=== PATIENT | male | born 1955 | race African-American/Black ===

== ENCOUNTER 2018-04-07 12:20 | Inpatient (IN) ==
[~2018-04-07 12:20] MED LIST: Glycopyrrolate Inj 1 MG/5 ML Syringe IV.PUSH ONE; Lidocaine PF 1% Inj 5 ML Syringe INFILTRATN ONE; Metoprolol Inj 5 MG/5 ML Vial IV.PUSH ONE; Normosol-R pH 7.4 Inj 2,000 ML IV.CONT ONE; hydrALAZINE HCl Inj 20 MG/ML Vial IV.PUSH ONE
--- NOTE | 2018-04-07 12:56 | P.HPUP ---
The Pre-Admit History and Physical Examination regarding the above named patient was reviewed (including, but not limited to, vital signs, heart, lungs, co-morbid conditions), and upon re-examination it is noted that: the patient's condition has not significantly changed since the last examination.
[2018-04-07] MEDS ORDERED: Chlorhexidine Gluconate 2% 1 Pack (2 Cloths) TOPICAL SCH (13:45)
[2018-04-07] MEDS ORDERED: Metoprolol Tartrate 25 MG Tablet PO SCH (13:45)
[2018-04-07] MEDS ORDERED: Sodium Chlor 0.9% Inj 500 ML IV.SIG SCH (14:00)
[2018-04-07] MEDS ORDERED: Bupivacaine PF 0.5% Inj 30 ML Vial ONE ×6 (14:08→14:59)
[2018-04-07] MEDS ORDERED: Sugammadex Inj 200 MG/2 ML Vial IV.PUSH ONE (14:18)
[2018-04-07] MEDS ORDERED: Potassium Chlor 20 mEq Premix 20 MEQ/100 ML PIGGYBACK IV.SIG PRN (16:17)
[2018-04-07] MEDS ORDERED: Ketorolac Inj 30 MG/ML (IVP) Vial IV.PUSH PRN (16:17)
[2018-04-07] MEDS ORDERED: Potassium Chlor 40 mEq Premix 40 MEQ/100 ML PIGGYBACK IV.SIG PRN (16:17)
[2018-04-07] MEDS ORDERED: Bupivacaine PF 0.5% Inj 30 ML Vial NERV BLOCK PRN (16:17)
[2018-04-07] MEDS ORDERED: Acetaminophen 325 MG Tablet PO PRN (16:17)
[2018-04-07] MEDS ORDERED: Naloxone Inj 0.4 MG/ML Vial IV.PUSH PRN (16:24)
[2018-04-07] MEDS ORDERED: *Meperidine Inj 25 MG/ML Vial PERIprocedural Use ONLY ONE (16:30)
[2018-04-07] MEDS ORDERED: fentaNYL Citrate Inj 100 MCG/2 ML Ampul ONE (16:37)
[2018-04-07] MEDS ORDERED: Morphine Inj 4 MG/ML Vial ONE (16:37)
[2018-04-07] MEDS ORDERED: Morphine Inj 30 MG/30 ML PCA.VIAL PCA ONE (16:42)
[2018-04-07] MEDS ORDERED: *morphine SULFATE 4 MG/ML PERIprocedure ONLY ONE (16:48)
[2018-04-07] MEDS: KCL 20 mEq/D5W/NaCl 0.9% Inj 1,000 ML IV.CONT SCH (17:00)
[2018-04-07] MEDS: Morphine Inj 30 MG/30 ML PCA.VIAL PCA PRN (18:51)
[2018-04-08] MEDS: KCL 20 mEq/D5W/NaCl 0.9% Inj 1,000 ML IV.CONT SCH ×3 (04:16→09:51)
[2018-04-08] MEDS: Morphine Inj 30 MG/30 ML PCA.VIAL PCA PRN ×3 (04:41→16:41)
[2018-04-08 05:21] LABS: Baso % (Auto) 0.1 % (0.0-2.0); Hematocrit 36.8 % (39.0-51.0); Hemoglobin 11.9 gm/dL (13.0-17.0); Lymph # (Auto) 0.7 th/mm3 (1.0-4.8); Lymph % (Auto) 4.8 % (9.0-44.0); Mean Corpuscular HGB Conc 32.4 % (32.0-36.0); Mean Corpuscular Hemoglobin 22.1 pg (27.0-34.0); Mean Corpuscular Volume 68.1 fL (80.0-100.0); Mono # (Auto) 1.3 th/mm3 (0.0-0.9); Mono % (Auto) 8.4 % (0.0-8.0); Neut % (Auto) 86.7 % (16.0-70.0); Platelet Count 210 th/mm3 (150-450)
[2018-04-08 05:35] LABS: Anion Gap 9 meq/L (5-15); Blood Urea Nitrogen 6 mg/dL (7-18); Carbon Dioxide 22.3 meq/L (21.0-32.0); Chloride 106 meq/L (98-107); Glomerular Filtration Rate Greater Than 89 mL/min (>89); Glucose,Random 189 mg/dL (74-106); Potassium 4.6 meq/L (3.5-5.1); Sodium 137 meq/L (136-145)
[2018-04-08] MEDS: Dextrose 5%/NaCl 0.9% Inj 1,000 ML IV.SIG SCH ×2 (07:11→07:38)
--- NOTE | 2018-04-08 08:01 | P.PNCS ---
Subjective Interval history: C/R Surg POD #1 afebrile, VSS UO good Objective Result Diagrams: 04/08/18 04:01 04/08/18 04:01 Objective Remarks: PE alert Abd - soft, wound dry, min tympany Assessment and Plan - Plan Imp: stable post-op OOB decr IVF tx to floor
[2018-04-08] MEDS: Pantoprazole Inj 40 MG Vial IV.PUSH SCH (09:10)
--- NOTE | 2018-04-08 23:31 | MP ---
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 PROCEDURE PERFORMED: Exploratory laparotomy with right hemicolectomy. POSTOPERATIVE DIAGNOSIS: Carcinoma of the hepatic flexure. SURGEON: Alex Pham MD ADDRESS CHANGE CLERK: Ray Velez MD DESCRIPTION OF PROCEDURE: The patient was placed in the supine position. After adequate general anesthesia, his legs were placed in universal stirrups and supported appropriately. Abdomen and perineum were then prepped with Betadine solution and draped in the usual sterile fashion. With Dr. Velez's assistance, the abdomen was opened through a supraumbilical transverse incision, dividing the rectus muscles with electrocautery. Exploration revealed Linnea ink in the omentum and throughout most of the mesentery of the colon, especially on the right side of the abdomen. There did appear to be more concentration at the hepatic flexure and a tumor was palpable in this region. There did appear to be some serosal puckering. The remainder of the colon was palpated carefully and except for some redundancy in the sigmoid, it was pretty unremarkable. The small bowel was run from ligament of Treitz down to the ileocecal valve and felt to be normal. Liver had no masses. The gallbladder was unremarkable. The stomach and duodenum were normal. The great vessels were of normal caliber, mildly calcified. First, the right colon was mobilized medially by dividing along the white line of Toldt. The right ureter was identified and carefully preserved. Dissection proceeded of the right gutter, taking down attachments to the hepatic flexure into the lesser sac and taking some of the gastrocolic omentum with the specimen. The bowel was then divided in the right side of the transverse colon using the ALFONSO stapler and the terminal ileum using Cherelle clamps. The intervening mesentery taken between Karla's, obtaining hemostasis with Vicryl ties. Bowel continuity was then restored by firing the ALFONSO stapler across the antimesenteric ends of the bowel, closing the enterotomy with a TA 60 stapler. Mesenteric defect closed with a running Vicryl suture and a 3-0 Vicryl crotch suture was placed as well. Bowel was placed back into the abdomen. Abdomen irrigated copiously and hemostasis achieved. Transverse incision was closed anatomically in 2 layers using #1 PDS sutures to reapproximate the respective fascial layers. On-Q catheters were placed into the rectus sheaths on the right side and brought out through subcutaneous tunnel above the transverse incision. The subcutaneous tissues were irrigated copiously and the skin closed with a running subcuticular Vicryl suture. Wound area washed with normal saline and dried, sterile dressing of Telfa and gauze applied. The patient tolerated the procedure quite well and was brought to the recovery room in stable condition. Sponge and needle counts were correct at the end of the procedure. Alex Pham MD [facility]/ , 11:14 PM , 11:30 PM
[2018-04-09] MEDS: KCL 20 mEq/D5W/NaCl 0.9% Inj 1,000 ML IV.CONT SCH ×2 (00:26→12:19)
[2018-04-09 07:14] LABS: Baso % (Auto) 0.3 % (0.0-2.0); Hematocrit 36.6 % (39.0-51.0); Hemoglobin 11.5 gm/dL (13.0-17.0); Lymph # (Auto) 2.3 th/mm3 (1.0-4.8); Lymph % (Auto) 13.9 % (9.0-44.0); Mean Corpuscular HGB Conc 31.3 % (32.0-36.0); Mean Corpuscular Hemoglobin 21.4 pg (27.0-34.0); Mean Corpuscular Volume 68.3 fL (80.0-100.0); Mean Platelet Volume 8.8 fL (7.0-11.0); Mono # (Auto) 1.9 th/mm3 (0.0-0.9); Mono % (Auto) 11.1 % (0.0-8.0); Neut # (Auto) 12.5 th/mm3 (1.8-7.7); Neut % (Auto) 74.7 % (16.0-70.0); Platelet Count 180 th/mm3 (150-450); Red Blood Count 5.36 mil/mm3 (4.50-5.90); Red Cell Distribution Width 16.7 % (11.6-17.2); White Blood Count 16.7 th/mm3 (4.0-11.0)
[2018-04-09 07:43] LABS: Calcium 8.4 mg/dL (8.5-10.1); Potassium 4.4 meq/L (3.5-5.1)
[2018-04-09] MEDS: Pantoprazole Inj 40 MG Vial IV.PUSH SCH (08:57)
--- NOTE | 2018-04-09 16:59 | P.PNCS ---
Subjective Interval history: C/R Surg POD # 2 afebrile, VSS UO good OOB Objective Result Diagrams: 04/09/18 04:56 04/09/18 04:56 Objective Remarks: PE alert Abd - soft, wound dry, min tympany Assessment and Plan - Plan Imp: OOB decr IVF dc morales adv diet
[2018-04-10 00:54] VITALS: TEMP 98.1
[2018-04-10 04:16] VITALS: O2SAT 97
[2018-04-10] MEDS: KCL 20 mEq/D5W/NaCl 0.9% Inj 1,000 ML IV.CONT SCH (05:33)
[2018-04-10 08:44] VITALS: BP 178/81; PULSE 89; RESP 20
[2018-04-10] MEDS: Pantoprazole Inj 40 MG Vial IV.PUSH SCH (11:52)
--- NOTE | 2018-05-02 05:49 | MD ---
cc: Alex Pham MD DATE OF DISCHARGE: 04/10/2018 ADMITTING DIAGNOSIS: Carcinoma of the hepatic flexure. PROCEDURE: On 04/07/2018, exploratory laparotomy with right hemicolectomy. DISCHARGE DIAGNOSES: 1. Carcinoma of the right colon, T2N0M0. 2. History of adenomatous polyps. HISTORY OF PRESENT ILLNESS: Mr. Louise is a 62-year-old male who has been in relatively good health, having polyps taken out years ago. Recently had a followup colonoscopy and a mass was identified. Once thought, it was the splenic flexure. The mass was biopsied showing invasive adenocarcinoma. Preoperative CAT scanning, however, shows a mass, more likely to be in the hepatic flexure. I have no other evidence of metastatic disease is seen in the CT scans. He does move his bowels without laxatives or enemas. Denies any bleeding, nausea, vomiting, or prolapse of his rectum. No diarrhea. No melena. Appetite has been good and his weight has been stable, about 255 pounds. The patient is admitted at this time for definitive surgical resection. Please see admitting history and physical for more complete past medical and surgical history. PERTINENT PHYSICAL: Very pleasant heavyset male in no acute distress. Abdomen was rounded and full, not really distended. Normal bowel sounds. No rebound, guarding, or masses. RECTAL: Anal inspection reveals benign canal. Digital exam revealed good tone. No masses or tenderness or any blood on the finger. HOSPITAL COURSE: After admission, the patient was taken to the operating room on 04/07/2018, at which point, he underwent an exploratory laparotomy and right hemicolectomy. He was found to have a palpable tumor at the hepatic flexure. There was some serosal puckering but the tumor was not adherent to any surrounding structures. The liver had no masses. The patient tolerated the procedure quite well. Initially, he was stabilized in the progressive care unit. His GI tract function returned fairly promptly and his diet was advanced accordingly. He was able to be weaned off his IV fluids and was having bowel movements comfortable with oral pain medication and considered stable for discharge home on 04/10/2018. PATHOLOGY: Final pathology report revealed a well-differentiated adenocarcinoma invading through the muscularis propria into the pericolonic tissue. No positive nodes was seen in 18 lymph nodes. Final stage was T3N0M0. DISCHARGE INSTRUCTIONS: The patient was discharged eating a regular diet, is encouraged to ambulate daily, avoiding any heavy lifting or straining. All preop medications were to be resumed. The patient will be seen in the office in 1 week's time for routine followup. Any problems prior to the scheduled office visit, he was encouraged to call for more urgent attention. Alex Pham MD [facility]/sv , 09:43 PM , 09:53 PM
== END 2018-04-10 12:14 | disposition home or self-care (01) ==
LOC: HSDI 12:20 → HCPC 20:11 → N07 04-08 18:23
PROVIDERS: ADMIT Colon & Rectal Surgery; ATTEND Colon & Rectal Surgery
DX: I10 Essential (primary) hypertension; E66.9 Obesity, unspecified; Z87.891 Personal history of nicotine dependence; C18.3 Malignant neoplasm of hepatic flexure; Z68.41 Body mass index [BMI] 40.0-44.9, adult

== ENCOUNTER 2018-04-14 02:54 | Observation (INO) ==
[2018-04-14] MEDS ORDERED: Morphine Inj 4 MG/ML Vial IV.PUSH ONE ×2 (03:21→07:31)
[2018-04-14] MEDS ORDERED: Sod Chloride 0.9% Inj 1,000 ML IV.CONT SCH (03:30)
--- NOTE | 2018-04-14 03:34 | ED ---
HPI General Chief Complaint: Abdominal Pain Stated Complaint: Abd Pain/EVAC Time Seen by Provider: 04/14/18 05:13 History of Present Illness HPI narrative: 63-year-old male presents to the emergency department by EMS transport from home for complaint of abdominal pain and abdominal distention associated with bilious emesis. Patient underwent elective surgery with exploratory laparotomy by colorectal surgeon Dr. Pham 04/07/18 with resection and hemicolectomy for hepatic flexure carcinoma. Patient was hospitalized for 3 days and had small amount of bowel movement and flatus was discharged home on Thursday subsequently has had 2 very small bowel movements scant amount of flatus increasing abdominal distention and constipation. Patient contacted his colorectal surgeon Dr. Pham who encouraged him to use suppository to assist with bowel movement and to take Reglan for complaint of nausea and vomiting. Patient complains of feeling hot and cold but has not had a fever at home reportedly. Patient's had decreased oral intake. Patient does have history of hypertension but has not been able to keep his blood pressure medication on board due to nausea and vomiting. No report of decreased urine output. No flank pain. No chest pain or shortness of breath. Patient has felt weak and continues to have abdominal pain and has not been taking his pain medication due to Related Data Home Medications Medication Instructions Recorded Confirmed clonidine HCl 0.2 mg PO BID 03/31/18 04/14/18 Allergies Allergy/AdvReac Type Severity Reaction Status Date / Time No Known Allergies Allergy Verified 04/07/18 13:03 [facility] Medical History Medical History Abnormal colonoscopy (Acute) Colon cancer (Acute) HTN (hypertension) (Acute) Surgical History Surgical History No history of previous surgery (Acute) Social History Social History Substance History: No History of Abuse Second Hand Smoke Exposure: No Smoking Status: Never smoker How Often Do You Have a Drink Containing Alcohol: Never Recent Travel in [facility] within the Last 8 Weeks: No Recent Out of Country Travel within the Last 8 Weeks: No Immunization History Tetanus Immunization: >5 Years Hx Influenza Vaccine This Season: No Exam Narrative Exam Narrative: GENERAL: Well-nourished, well-developed patient. Appears mildly ill with no respiratory distress on monitoring coordinator heart rate sinus tachycardia 115 SKIN: Focused skin assessment warm/dry. HEAD: Normocephalic. EYES: No scleral icterus. No injection or drainage. NECK: Supple, trachea midline. No JVD or lymphadenopathy. CARDIOVASCULAR: Regular rate and rhythm without murmurs, gallops, or rubs. RESPIRATORY: Breath sounds equal bilaterally. No accessory muscle use. GASTROINTESTINAL: Abdomen soft, diffusely mildly tender, distended, surgical scar wound edges are well approximated no palpable soft tissue swelling fluctuance induration or erythema surgical site is nontender. MUSCULOSKELETAL: No cyanosis, or edema. BACK: Nontender without obvious deformity. No CVA tenderness. Course Consultations Consultation #1: call placed to Dr Pham Initial Documented Vital Signs Temperature 98.3 F 04/14/18 03:18 Pulse Rate 118 H 04/14/18 03:18 Respiratory Rate 18 04/14/18 03:18 Blood Pressure 203/109 H 04/14/18 03:18 Pulse Oximetry 96 04/14/18 03:18 Last Documented Vital Signs Temperature 98.5 F 04/14/18 03:22 Pulse Rate 114 H 04/14/18 03:22 Respiratory Rate 16 04/14/18 03:22 Blood Pressure 198/93 H 04/14/18 03:22 Pulse Oximetry 98 04/14/18 03:22 Medical Decision Making MDM Narrative Medical decision making narrative: 63-year-old male with decreased flatus and bowel movement with increasing nausea vomiting abdominal girth status post partial colectomy due to hepatic flexure carcinoma status post surgery 04/07/18 presents ill-appearing with generalized weakness and tachycardia; no chest pain no pleuritic chest pain no shortness of breath. Patient's been afebrile. IV access obtained specimens collected and sent for resulting imaging studies ordered At 5:[address] abdomen pelvis consistent with small bowel obstruction; call placed to patient's colorectal surgeon Dr. Pham NG tube placement ordered; patient and family at bedside aware of plan for observation admission for postoperative ileus versus small bowel obstruction; patient is aware he will be on Dr. Pham service. Patient did not take pain medication ordered earlier and request pain medication at this time. Differential Diagnosis Differential Diagnosis: Bowel obstruction, postoperative hematoma, pneumonia, sepsis, PE, UTI Medical Records Medical records reviewed: Yes I reviewed the patient's medical records. Lab Data Result diagrams: 04/14/18 03:46 04/14/18 03:46 Lab Results 04/14/18 04/14/18 04/14/18 Range/Units 03:46 03:46 03:46 WBC (4.0-11.0) th/mm3 RBC (4.50-5.90) mil/mm3 Hgb (13.0-17.0) gm/dL Hct (39.0-51.0) % MCV (80.0-100.0) fL MCH (27.0-34.0) pg MCHC (32.0-36.0) % RDW (11.6-17.2) % Plt Count (150-450) th/mm3 MPV (7.0-11.0) fL Neut % (Auto) (16.0-70.0) % Lymph % (Auto) (9.0-44.0) % Gaines % (Auto) (0.0-8.0) % Eos % (Auto) (0.0-4.0) % Baso % (Auto) (0.0-2.0) % Neut # (Auto) (1.8-7.7) th/mm3 Lymph # (Auto) (1.0-4.8) th/mm3 Gaines # (Auto) (0.0-0.9) th/mm3 Eos # (Auto) (0.0-0.4) th/mm3 Baso # (Auto) (0.0-0.2) th/mm3 WBC Differential Differential Comment PT 10.8 (9.8-11.6) sec INR 1.1 Ratio APTT 29.9 (24.3-30.1) sec Sodium (136-145) meq/L Potassium (3.5-5.1) meq/L Chloride (98-107) meq/L Carbon Dioxide (21.0-32.0) meq/L Anion Gap (5-15) meq/L BUN (7-18) mg/dL Creatinine (0.60-1.30) mg/dL Estimated GFR (>89) mL/min Random Glucose (74-106) mg/dL Lactic Acid 1.5 (0.4-2.0) mmol/L Calcium (8.5-10.1) mg/dL Total Bilirubin (0.2-1.0) mg/dL AST (15-37) U/L ALT (12-78) U/L Alkaline Phosphatase (45-117) U/L Total Protein (6.4-8.2) g/dL Albumin (3.4-5.0) g/dL Lipase (73-393) U/L Blood Type O Positive Blood Type Recheck Required Antibody Screen Negative 04/14/18 04/14/18 Range/Units 03:46 03:46 WBC 11.9 H (4.0-11.0) th/mm3 RBC 5.85 (4.50-5.90) mil/mm3 Hgb 12.7 L (13.0-17.0) gm/dL Hct 39.6 (39.0-51.0) % MCV 67.7 L (80.0-100.0) fL MCH 21.7 L (27.0-34.0) pg MCHC 32.0 (32.0-36.0) % RDW 15.7 (11.6-17.2) % Plt Count 303 D (150-450) th/mm3 MPV 8.1 (7.0-11.0) fL Neut % (Auto) 63.8 (16.0-70.0) % Lymph % (Auto) 19.3 (9.0-44.0) % Gaines % (Auto) 16.4 H (0.0-8.0) % Eos % (Auto) 0.3 (0.0-4.0) % Baso % (Auto) 0.2 (0.0-2.0) % Neut # (Auto) 7.6 (1.8-7.7) th/mm3 Lymph # (Auto) 2.3 (1.0-4.8) th/mm3 Gaines # (Auto) 2.0 H (0.0-0.9) th/mm3 Eos # (Auto) 0.0 (0.0-0.4) th/mm3 Baso # (Auto) 0.0 (0.0-0.2) th/mm3 WBC Differential . Differential Comment Auto diff final PT (9.8-11.6) sec INR Ratio APTT (24.3-30.1) sec Sodium 132 L (136-145) meq/L Potassium 4.2 (3.5-5.1) meq/L Chloride 93 L (98-107) meq/L Carbon Dioxide 25.2 (21.0-32.0) meq/L Anion Gap 14 (5-15) meq/L BUN 38 H (7-18) mg/dL Creatinine 1.39 H (0.60-1.30) mg/dL Estimated GFR 62 L (>89) mL/min Random Glucose 147 H (74-106) mg/dL Lactic Acid (0.4-2.0) mmol/L Calcium 9.7 (8.5-10.1) mg/dL Total Bilirubin 0.5 (0.2-1.0) mg/dL AST 35 (15-37) U/L ALT 39 (12-78) U/L Alkaline Phosphatase 80 (45-117) U/L Total Protein 8.2 (6.4-8.2) g/dL Albumin 3.5 (3.4-5.0) g/dL Lipase 110 (73-393) U/L Blood Type Blood Type Recheck Antibody Screen Imaging Data Radiologist's impression: Abdomen/Pelvis CT 04/14/18 03:21 CONCLUSION: 1. CT findings concerning for small bowel obstruction. Short segment transition just proximal to what appears to be enterocolonic anastomosis in the right abdomen with a colonic transition at the splenic flexure. Descending and sigmoid portions of the colon are completely decompressed. 2. Diverticular disease of the sigmoid colon without diverticulitis. 3. Bibasilar atelectatic changes. Chest X-Ray 04/14/18 03:21 CONCLUSION: Bibasilar atelectatic changes Discharge Plan Discharge Disposition Patient Disposition: 30 Still Patient Discharge Condition Condition: Stable Discharge Details Diagnosis: Small bowel obstruction Physicians Team ED Provider: Lin Freeman Primary Care Provider: Juan Diego Pérez Attending Provider: Alex Pham Status ED Status: Admitted Observation Patient
[2018-04-14 04:02] LABS: Baso % (Auto) 0.2 % (0.0-2.0); Eos % (Auto) 0.3 % (0.0-4.0); Hematocrit 39.6 % (39.0-51.0); Hemoglobin 12.7 gm/dL (13.0-17.0); Lymph # (Auto) 2.3 th/mm3 (1.0-4.8); Lymph % (Auto) 19.3 % (9.0-44.0); Mean Corpuscular Hemoglobin 21.7 pg (27.0-34.0); Mean Corpuscular Volume 67.7 fL (80.0-100.0); Mean Platelet Volume 8.1 fL (7.0-11.0); Mono % (Auto) 16.4 % (0.0-8.0); Neut # (Auto) 7.6 th/mm3 (1.8-7.7); Neut % (Auto) 63.8 % (16.0-70.0); Platelet Count 303 th/mm3 (150-450); Red Blood Count 5.85 mil/mm3 (4.50-5.90); Red Cell Distribution Width 15.7 % (11.6-17.2); White Blood Count 11.9 th/mm3 (4.0-11.0)
--- NOTE | 2018-04-14 04:17 | XR ---
EXAM DATE: 04/14/2018 4:11 AM EDT AGE/SEX: 63 years / Male INDICATIONS: Chest pain, nausea, vomiting, abdominal pain and distention. CLINICAL DATA: This is the patient's initial encounter. Patient reports that signs and symptoms have been present for 4 - 6 days and indicates a pain score of 3/10. MEDICAL/SURGICAL HISTORY: None. None. [place] [facility] [place]. . FINDINGS: A single AP view of the chest demonstrates the lungs to be symmetrically aerated with developing biba silar atelectatic changes, particularly medially. Heart size is upper limits of normal. Some degenera tive spurring of the dorsal spine and both AC joints. Osseous structures are otherwise intact. CONCLUSION: Bibasilar atelectatic changes Electronically signed by: Danny Faria MD 04/14/2018 4:16 AM EDT
[2018-04-14 04:18] LABS: Alkaline Phosphatase 80 U/L (45-117); Total Protein 8.2 g/dL (6.4-8.2)
[2018-04-14 04:22] LABS: Activated Partial Thrombo Time 29.9 sec (24.3-30.1); Alanine Aminotransferase 39 U/L (12-78); Albumin 3.5 g/dL (3.4-5.0); Anion Gap 14 meq/L (5-15); Aspartate Aminotransferase 35 U/L (15-37); Blood Urea Nitrogen 38 mg/dL (7-18); Calcium 9.7 mg/dL (8.5-10.1); Carbon Dioxide 25.2 meq/L (21.0-32.0); Chloride 93 meq/L (98-107); Glomerular Filtration Rate 62 mL/min (>89); Glucose,Random 147 mg/dL (74-106); INR 1.1 Ratio; Lipase 110 U/L (73-393); Prothrombin Time 10.8 sec (9.8-11.6); Sodium 132 meq/L (136-145)
[2018-04-14 04:23] LABS: Potassium 4.2 meq/L (3.5-5.1)
--- NOTE | 2018-04-14 05:54 | CT ---
EXAM DATE: 04/14/2018 5:26 AM EDT AGE/SEX: 63 years / Male INDICATIONS: Distention and vomiting one week post operative colectomy. CLINICAL DATA: This is the patient's initial encounter. Patient reports that signs and symptoms have been present for 4 - 6 days and indicates a pain score of 8/10. MEDICAL/SURGICAL HISTORY: Hypertension. Carcinoma; colon. . Colectomy. ORAL CONTRAST: No oral contrast ingested. RADIATION DOSE: 7.74 CTDI (mGy) COMPARISON: [facility], CT ABDOMEN AND PELVIS W AND W/O CONTRAST, 02/17/2018. . TECHNIQUE: Multiple contiguous axial images were obtained through the abdomen and pelvis following b olus infusion of 75 ml Omnipaque 350 (iohexol) nonionic water-soluble contrast as a single exam dos e. No oral contrast ingested. Using automated exposure control and adjustment of the mA and/or kV ac cording to patient size, radiation dose was kept as low as reasonably achievable to obtain optimal di agnostic quality images. DICOM format image data is available electronically for review and comparis on. FINDINGS: Lower Lungs: Bibasilar atelectatic changes. Liver: The liver has a homogeneous density without space-occupying lesion. There is no dilation of th e biliary tree. Spleen: Homogeneous density without enlargement. Pancreas: Unremarkable without mass or calcification. Kidneys: Normal in size and shape. No evidence of mass or hydronephrosis. Adrenal Glands: Unremarkable. Aorta: The aorta and proximal iliac vessels are grossly unremarkable without aneurysmal dilation. Bowel/Mesentery: There is diffuse distention of the small bowel and gastric lumen. Fluid is actually seen in the distal esophagus as well. There are 2 relative transition points. The first in the right lower abdominal quadrant is just proximal to what appears to be the enterocolonic anastomosis. Secon d transition is within the colon itself in the region of the splenic flexure. A few diverticula in th e sigmoid without diverticulitis. Abdominal Wall: Intact. Retroperitoneum: No evidence of adenopathy in the retrocrural, para-aortic, or deep pelvic regions. Bladder: Contours are smooth. Reproductive Organs: No abnormal masses or calcifications seen. Inguinal: The inguinal region is unremarkable without evidence of adenopathy. Bony Structures: Unremarkable. Post Contrast: No abnormal areas of enhancement seen. CONCLUSION: 1. CT findings concerning for small bowel obstruction. Short segment transition just proximal to wha t appears to be enterocolonic anastomosis in the right abdomen with a colonic transition at the splen ic flexure. Descending and sigmoid portions of the colon are completely decompressed. 2. Diverticular disease of the sigmoid colon without diverticulitis. 3. Bibasilar atelectatic changes. Electronically signed by: Danny Faria MD 04/14/2018 5:53 AM EDT
[2018-04-14] MEDS ORDERED: Lidocaine 2% Jelly 5 ML Syringe TOPICAL ONE (07:31)
[2018-04-14] MEDS: Sod Chloride 0.9% Inj 1,000 ML IV.CONT SCH ×2 (09:39→17:12)
[2018-04-14] MEDS: Pantoprazole Inj 40 MG Vial IV.PUSH SCH (09:56)
[2018-04-14 12:45] LABS: Bacteria,Urine Moderate /hpf; Bilirubin,Urine Negative (Negative); Clarity,Urine Hazy (Clear); Color,Urine Yellow (Yellw/Straw); Glucose,Urine (UA) 50 mg/dL (Negative); Hyaline Casts,Urine 31 /lpf (0-3); Leukocyte Esterase,Urine Negative (Negative); Mucus,Urine Few /lpf (Occasional); Nitrite,Urine Negative (Negative); Squamous Epithelial Cell,Urine <1 /hpf (0-5)
--- NOTE | 2018-04-14 12:57 | MH ---
cc: Alex Pham MD DATE OF ADMISSION: 04/14/2018 ADMITTING DIAGNOSIS: Nausea, vomiting postop ascending colectomy. HISTORY OF PRESENT ILLNESS: Mr. Louise is 63-year-old male recently operated on for a cancer of the hepatic flexure. He did well postoperatively and was home, eating well. The patient developed some gaseous distention and some nausea, vomiting. He was given some Phenergan and continued to have decreased oral intake. He presented to the emergency room last evening with continued emesis and abdominal cramps. He has had some flatus, but very little bowel movement over the last several days. Denied any fever. No rectal bleeding. The patient has been urinating fairly well. PAST MEDICAL HISTORY: Please see his recent admission for a more complete past medical and surgical history. PERTINENT PHYSICAL EXAMINATION: GENERAL: A very pleasant black male in no acute distress. HEENT: Remarkable for dry, but pink membranes. Nonicteric sclerae. NECK: Supple with no gross adenopathy. CHEST: Diminished in the bases, clear anteriorly. HEART: Regular rhythm. ABDOMEN: Doughy and soft, a little full. Minimal tympany. The wound is healing well. Very little tenderness, rebound, guarding or any masses. NG tube was in place. EXTREMITIES: Show no cyanosis or clubbing and minimal trace pedal edema. LABORATORY STUDIES: White count was 11.9, hemoglobin 12.7. BUN was 38, creatinine of 1.39. Sodium of 132. Amylase and lipase were normal. Liver function tests were unremarkable. IMAGING STUDIES: CT scan was reviewed, showing a generalized ileus with distended loops of bowel as well as a gastric air fluid level and air in the colon as well. No sign of intra-abdominal abscess or fluid collection was noted. IMPRESSION: A 63-year-old male status post ascending colectomy for cancer of the right colon. Presents with several days of decreased oral intake and nausea, vomiting. CAT scan shows findings consistent with a postop ileus. He is dehydrated with an elevated BUN and creatinine, and will have vigorous fluid replacement. Watch his urine output. Control his hypertension. Try to get him ambulating, and continue the nasogastric tube with decompression of the stomach and small bowel for the next day or so, hopefully getting the ileus to resolve spontaneously. MD JUAN J Roach/martinez/ll , 12:00 PM , 12:09 PM
[2018-04-14] MEDS ORDERED: Morphine Inj 30 MG/30 ML PCA.VIAL PCA PRN (18:21)
[2018-04-14] MEDS ORDERED: Naloxone Inj 0.4 MG/ML Vial IV.PUSH PRN (18:21)
[2018-04-15] MEDS: Sod Chloride 0.9% Inj 1,000 ML IV.CONT SCH ×3 (05:48→17:27)
[2018-04-15] MEDS: Pantoprazole Inj 40 MG Vial IV.PUSH SCH (09:48)
[2018-04-15 13:24] LABS: Baso % (Auto) 0.3 % (0.0-2.0); Eos % (Auto) 0.2 % (0.0-4.0); Hematocrit 37.6 % (39.0-51.0); Lymph # (Auto) 2.1 th/mm3 (1.0-4.8); Lymph % (Auto) 15.1 % (9.0-44.0); Mean Corpuscular Hemoglobin 21.8 pg (27.0-34.0); Mean Corpuscular Volume 68.3 fL (80.0-100.0); Mono # (Auto) 1.8 th/mm3 (0.0-0.9); Neut # (Auto) 9.7 th/mm3 (1.8-7.7); Neut % (Auto) 71.4 % (16.0-70.0); Platelet Count 333 th/mm3 (150-450); Red Blood Count 5.51 mil/mm3 (4.50-5.90); Red Cell Distribution Width 15.9 % (11.6-17.2); White Blood Count 13.7 th/mm3 (4.0-11.0)
[2018-04-15 13:51] LABS: Anion Gap 9 meq/L (5-15); Blood Urea Nitrogen 18 mg/dL (7-18); Calcium 8.7 mg/dL (8.5-10.1); Chloride 103 meq/L (98-107); Glomerular Filtration Rate Greater Than 89 mL/min (>89); Glucose,Random 166 mg/dL (74-106); Potassium 3.5 meq/L (3.5-5.1); Sodium 138 meq/L (136-145)
[2018-04-15 13:59] LABS: Lymphocytes 28 % (9-44); Monocytes 4 % (0-8); Myelocytes 2 % (0-0); Toxic Granulation 1+
[2018-04-15 14:00] LABS: Platelet Estimate Normal (Normal); Platelet Morphology Normal (Normal); Target Cells 1+
[2018-04-15] MEDS: Heparin - SQ 10,000 UNITS/ML Vial SQ SCH (20:42)
--- NOTE | 2018-04-15 23:06 | P.PNCS ---
Subjective Interval history: C/R Surg afebrile, VSS NGT less UO good +BM Objective Result Diagrams: 04/15/18 12:59 04/15/18 12:55 Objective Remarks: PE alert Abd - soft, wound dry, less tympany Assessment and Plan - Plan Discussed Condition With: Imp: better GI function DC NGT start PO decr IVF
[2018-04-16] MEDS: Sod Chloride 0.9% Inj 1,000 ML IV.CONT SCH (09:13)
[2018-04-16] MEDS: Pantoprazole Inj 40 MG Vial IV.PUSH SCH (09:14)
[2018-04-16] MEDS: Heparin - SQ 10,000 UNITS/ML Vial SQ SCH (09:14)
--- NOTE | 2018-05-12 03:38 | ED ---
HPI General Chief Complaint: Abdominal Pain Stated Complaint: Abd Pain/EVAC Time Seen by Provider: 04/14/18 05:13 Source: patient and family Mode of arrival: EMS Limitations: no limitations History of Present Illness HPI narrative: 63-year-old male presents to the emergency department with family by EMS for evaluation of abdominal distention abdominal pain vomiting and constipation. Patient underwent partial bowel resection for colon cancer by colorectal surgeon Dr. Pham 1 week ago. Patient rates pain 7/10 in intensity. No reported fever or chills. Patient voicing no other concerns or complaints. No chest pain no shortness of breath no pleuritic chest pain no lower extremity pain or swelling. No dysuria frequency. No skin rash, redness induration or drainage. MD complaint: abdominal pain Onset (ago): day(s) Pain Consistency: constant Location: diffuse Severity scale (1-10): 7 Quality: cramping Radiation: none Migration to: no migration Relieving factors: nothing Exacerbating factors: nothing Context: recent surgery/procedure Associated symptoms: nausea, vomiting and constipation (no bm) Related Data Home Medications Medication Instructions Recorded Confirmed clonidine HCl 0.2 mg PO BID 03/31/18 04/14/18 Allergies Allergy/AdvReac Type Severity Reaction Status Date / Time No Known Allergies Allergy Verified 04/14/18 13:05 Review of Systems ROS: all other systems reviewed are negative [facility] Medical History Medical History Abnormal colonoscopy (Acute) Colon cancer (Acute) HTN (hypertension) (Acute) Surgical History Surgical History History of bowel resection (Acute) No history of previous surgery (Acute) Social History Social History Substance History: No History of Abuse Second Hand Smoke Exposure: No Smoking Status: Former smoker Tobacco Type: Cigarettes How Often Do You Have a Drink Containing Alcohol: Never Recent Travel in [place] within the Last 8 Weeks: No Recent Out of Country Travel within the Last 8 Weeks: No Immunization History Tetanus Immunization: >5 Years Hx Influenza Vaccine This Season: No Exam Narrative Exam Narrative: GENERAL: Well-nourished, well-developed patient. SKIN: Focused skin assessment warm/dry. HEAD: Normocephalic. EYES: No scleral icterus. No injection or drainage. NECK: Supple, trachea midline. No JVD or lymphadenopathy. CARDIOVASCULAR: Regular rate and rhythm without murmurs, gallops, or rubs. RESPIRATORY: Breath sounds equal bilaterally. No accessory muscle use. GASTROINTESTINAL: Abdomen soft, tender, nondistended. MUSCULOSKELETAL: No cyanosis, or edema. BACK: Nontender without obvious deformity. No CVA tenderness. Course Initial Documented Vital Signs Temperature 98.3 F 04/14/18 03:18 Pulse Rate 118 H 04/14/18 03:18 Respiratory Rate 18 04/14/18 03:18 Blood Pressure 203/109 H 04/14/18 03:18 Pulse Oximetry 96 04/14/18 03:18 Last Documented Vital Signs Temperature 98.1 F 04/16/18 15:45 Pulse Rate 97 H 04/16/18 15:45 Respiratory Rate 20 04/16/18 15:45 Blood Pressure 171/85 H 04/16/18 15:45 Pulse Oximetry 97 04/16/18 15:45 Medical Decision Making MDM Narrative Medical decision making narrative: Patient with abdominal pain 1 week postoperatively placed on electronic device monitor IV access obtained specimens collected and sent for resulting pain medication administered CT abdomen pelvis ordered CT consistent with small bowel obstruction noted some atelectasis White count is elevated at 13,700 urine shows moderate bacteria Patient's case discussed with his surgeon Dr. Pham for admission Medical Screen Exam Complete: Yes Emergency Medical Condition: Yes Differential Diagnosis Differential Diagnosis: Postoperative pain, ileus, bowel obstruction, abscess, diverticulitis, viscus perforation, Medical Records Medical records reviewed: Yes I reviewed the patient's medical records. Lab Data Result diagrams: 04/15/18 12:59 04/15/18 12:55 Lab Results 04/14/18 04/14/18 04/14/18 Range/Units 03:46 03:46 03:46 WBC (4.0-11.0) th/mm3 RBC (4.50-5.90) mil/mm3 Hgb (13.0-17.0) gm/dL Hct (39.0-51.0) % MCV (80.0-100.0) fL MCH (27.0-34.0) pg MCHC (32.0-36.0) % RDW (11.6-17.2) % Plt Count (150-450) th/mm3 MPV (7.0-11.0) fL Prelim Diff (Auto) Neut % (Auto) (16.0-70.0) % Lymph % (Auto) (9.0-44.0) % Bartholomew % (Auto) (0.0-8.0) % Eos % (Auto) (0.0-4.0) % Baso % (Auto) (0.0-2.0) % Neut # (Auto) (1.8-7.7) th/mm3 Lymph # (Auto) (1.0-4.8) th/mm3 Bartholomew # (Auto) (0.0-0.9) th/mm3 Eos # (Auto) (0.0-0.4) th/mm3 Baso # (Auto) (0.0-0.2) th/mm3 WBC Differential Seg Neuts % (Manual) (16-70) % Band Neuts % (Manual) (0-6) % Lymphocytes % (Manual) (9-44) % Monocytes % (Manual) (0-8) % Myelocytes % (Man) (0-0) % Abs Neuts (Manual) (1.8-7.7) th/mm3 Differential Comment Toxic Granulation (None) Platelet Estimate (Normal) Platelet Morphology (Normal) Target Cells (None) PT 10.8 (9.8-11.6) sec INR 1.1 Ratio APTT 29.9 (24.3-30.1) sec Sodium (136-145) meq/L Potassium (3.5-5.1) meq/L Chloride (98-107) meq/L Carbon Dioxide (21.0-32.0) meq/L Anion Gap (5-15) meq/L BUN (7-18) mg/dL Creatinine (0.60-1.30) mg/dL Estimated GFR (>89) mL/min Random Glucose (74-106) mg/dL Lactic Acid 1.5 (0.4-2.0) mmol/L Calcium (8.5-10.1) mg/dL Total Bilirubin (0.2-1.0) mg/dL AST (15-37) U/L ALT (12-78) U/L Alkaline Phosphatase (45-117) U/L Total Protein (6.4-8.2) g/dL Albumin (3.4-5.0) g/dL Lipase (73-393) U/L Urine Color (Yellw/Straw) Urine Clarity (Clear) Urine pH (5.0-8.5) Ur Specific [place] (1.002-1.035) Urine Protein (Neg-Trace) mg/dL Urine Glucose (UA) (Negative) mg/dL Urine Ketones (Negative) mg/dL Urine Occult Blood (Negative) Urine Nitrate (Negative) Urine Bilirubin (Negative) Urine Urobilinogen (Less than 2) mg/dL Ur Leukocyte Esterase (Negative) Urine RBC (0-3) /hpf Urine WBC (0-5) /hpf Ur Squamous Epith Cells (0-5) /hpf Urine Bacteria (None) /hpf Hyaline Casts (0-3) /lpf Granular Casts (None) /lpf Urine Mucus (Occasional) /lpf Micro UA Comment Urine Culture Comments Blood Type O Positive Blood Type Recheck Required Antibody Screen Negative 04/14/18 04/14/18 04/14/18 Range/Units 03:46 03:46 10:15 WBC 11.9 H (4.0-11.0) th/mm3 RBC 5.85 (4.50-5.90) mil/mm3 Hgb 12.7 L (13.0-17.0) gm/dL Hct 39.6 (39.0-51.0) % MCV 67.7 L (80.0-100.0) fL MCH 21.7 L (27.0-34.0) pg MCHC 32.0 (32.0-36.0) % RDW 15.7 (11.6-17.2) % Plt Count 303 D (150-450) th/mm3 MPV 8.1 (7.0-11.0) fL Prelim Diff (Auto) Neut % (Auto) 63.8 (16.0-70.0) % Lymph % (Auto) 19.3 (9.0-44.0) % Bartholomew % (Auto) 16.4 H (0.0-8.0) % Eos % (Auto) 0.3 (0.0-4.0) % Baso % (Auto) 0.2 (0.0-2.0) % Neut # (Auto) 7.6 (1.8-7.7) th/mm3 Lymph # (Auto) 2.3 (1.0-4.8) th/mm3 Bartholomew # (Auto) 2.0 H (0.0-0.9) th/mm3 Eos # (Auto) 0.0 (0.0-0.4) th/mm3 Baso # (Auto) 0.0 (0.0-0.2) th/mm3 WBC Differential . Seg Neuts % (Manual) (16-70) % Band Neuts % (Manual) (0-6) % Lymphocytes % (Manual) (9-44) % Monocytes % (Manual) (0-8) % Myelocytes % (Man) (0-0) % Abs Neuts (Manual) (1.8-7.7) th/mm3 Differential Comment Auto diff final Toxic Granulation (None) Platelet Estimate (Normal) Platelet Morphology (Normal) Target Cells (None) PT (9.8-11.6) sec INR Ratio APTT (24.3-30.1) sec Sodium 132 L (136-145) meq/L Potassium 4.2 (3.5-5.1) meq/L Chloride 93 L (98-107) meq/L Carbon Dioxide 25.2 (21.0-32.0) meq/L Anion Gap 14 (5-15) meq/L BUN 38 H (7-18) mg/dL Creatinine 1.39 H (0.60-1.30) mg/dL Estimated GFR 62 L (>89) mL/min Random Glucose 147 H (74-106) mg/dL Lactic Acid (0.4-2.0) mmol/L Calcium 9.7 (8.5-10.1) mg/dL Total Bilirubin 0.5 (0.2-1.0) mg/dL AST 35 (15-37) U/L ALT 39 (12-78) U/L Alkaline Phosphatase 80 (45-117) U/L Total Protein 8.2 (6.4-8.2) g/dL Albumin 3.5 (3.4-5.0) g/dL Lipase 110 (73-393) U/L Urine Color Yellow (Yellw/Straw) Urine Clarity Hazy H (Clear) Urine pH 5.0 (5.0-8.5) Ur Specific [place] 1.030 (1.002-1.035) Urine Protein 30 H (Neg-Trace) mg/dL Urine Glucose (UA) 50 (Negative) mg/dL Urine Ketones 20 (Negative) mg/dL Urine Occult Blood Small H (Negative) Urine Nitrate Negative (Negative) Urine Bilirubin Negative (Negative) Urine Urobilinogen Less than 2 (Less than 2) mg/dL Ur Leukocyte Esterase Negative (Negative) Urine RBC 1 (0-3) /hpf Urine WBC 1 (0-5) /hpf Ur Squamous Epith Cells <1 (0-5) /hpf Urine Bacteria Moderate H (None) /hpf Hyaline Casts 31 (0-3) /lpf Granular Casts 1 (None) /lpf Urine Mucus Few H (Occasional) /lpf Micro UA Comment Culture indicated Urine Culture Comments Culture indicated Blood Type Blood Type Recheck Antibody Screen 04/15/18 04/15/18 Range/Units 12:55 12:59 WBC 13.7 H (4.0-11.0) th/mm3 RBC 5.51 (4.50-5.90) mil/mm3 Hgb 12.0 L (13.0-17.0) gm/dL Hct 37.6 L (39.0-51.0) % MCV 68.3 L (80.0-100.0) fL MCH 21.8 L (27.0-34.0) pg MCHC 32.0 (32.0-36.0) % RDW 15.9 (11.6-17.2) % Plt Count 333 (150-450) th/mm3 MPV 8.0 (7.0-11.0) fL Prelim Diff (Auto) Slide review pending Neut % (Auto) 71.4 H (16.0-70.0) % Lymph % (Auto) 15.1 (9.0-44.0) % Bartholomew % (Auto) 13.0 H (0.0-8.0) % Eos % (Auto) 0.2 (0.0-4.0) % Baso % (Auto) 0.3 (0.0-2.0) % Neut # (Auto) 9.7 H (1.8-7.7) th/mm3 Lymph # (Auto) 2.1 (1.0-4.8) th/mm3 Bartholomew # (Auto) 1.8 H (0.0-0.9) th/mm3 Eos # (Auto) 0.0 (0.0-0.4) th/mm3 Baso # (Auto) 0.0 (0.0-0.2) th/mm3 WBC Differential Manual diff final Seg Neuts % (Manual) 63 (16-70) % Band Neuts % (Manual) 3 (0-6) % Lymphocytes % (Manual) 28 (9-44) % Monocytes % (Manual) 4 (0-8) % Myelocytes % (Man) 2 H (0-0) % Abs Neuts (Manual) 9.3 H (1.8-7.7) th/mm3 Differential Comment . Toxic Granulation 1+ H (None) Platelet Estimate Normal (Normal) Platelet Morphology Normal (Normal) Target Cells 1+ H (None) PT (9.8-11.6) sec INR Ratio APTT (24.3-30.1) sec Sodium 138 (136-145) meq/L Potassium 3.5 (3.5-5.1) meq/L Chloride 103 D (98-107) meq/L Carbon Dioxide 26.0 (21.0-32.0) meq/L Anion Gap 9 (5-15) meq/L BUN 18 (7-18) mg/dL Creatinine 0.95 (0.60-1.30) mg/dL Estimated GFR Greater than 89 (>89) mL/min Random Glucose 166 H (74-106) mg/dL Lactic Acid (0.4-2.0) mmol/L Calcium 8.7 D (8.5-10.1) mg/dL Total Bilirubin (0.2-1.0) mg/dL AST (15-37) U/L ALT (12-78) U/L Alkaline Phosphatase (45-117) U/L Total Protein (6.4-8.2) g/dL Albumin (3.4-5.0) g/dL Lipase (73-393) U/L Urine Color (Yellw/Straw) Urine Clarity (Clear) Urine pH (5.0-8.5) Ur Specific [place] (1.002-1.035) Urine Protein (Neg-Trace) mg/dL Urine Glucose (UA) (Negative) mg/dL Urine Ketones (Negative) mg/dL Urine Occult Blood (Negative) Urine Nitrate (Negative) Urine Bilirubin (Negative) Urine Urobilinogen (Less than 2) mg/dL Ur Leukocyte Esterase (Negative) Urine RBC (0-3) /hpf Urine WBC (0-5) /hpf Ur Squamous Epith Cells (0-5) /hpf Urine Bacteria (None) /hpf Hyaline Casts (0-3) /lpf Granular Casts (None) /lpf Urine Mucus (Occasional) /lpf Micro UA Comment Urine Culture Comments Blood Type Blood Type Recheck Antibody Screen Imaging Data Radiologist's impression: Abdomen/Pelvis CT 04/14/18 03:21 CONCLUSION: 1. CT findings concerning for small bowel obstruction. Short segment transition just proximal to what appears to be enterocolonic anastomosis in the right abdomen with a colonic transition at the splenic flexure. Descending and sigmoid portions of the colon are completely decompressed. 2. Diverticular disease of the sigmoid colon without diverticulitis. 3. Bibasilar atelectatic changes. Chest X-Ray 04/14/18 03:21 CONCLUSION: Bibasilar atelectatic changes Discharge Plan Discharge Disposition Patient Disposition: 30 Still Patient Discharge Condition Condition: Stable Discharge Order Discharge Orders: Discharge Order (Routine); Ordered 04/16/18 Ordered By: Alex Pham Discharge Details Diagnosis: Small bowel obstruction Physicians Team ED Provider: Lin Freeman Primary Care Provider: Juan Diego Pérez Attending Provider: Alex Pham Status ED Status: Left Department Discharge Information Discharge Date/Time: 04/14/18 13:09
== END 2018-04-16 16:18 | disposition home or self-care (01) ==
LOC: NEDA 02:54 → NEPC 02:54 → NEPHCDU 02:54
PROVIDERS: ADMIT Colon & Rectal Surgery; ATTEND Colon & Rectal Surgery
DX: R11.2 Nausea with vomiting, unspecified; R06.02 Shortness of breath; E86.0 Dehydration; C18.3 Malignant neoplasm of hepatic flexure; Z90.49 Acquired absence of other specified parts of digestive tract; I10 Essential (primary) hypertension; B96.1 Klebsiella pneumoniae [K. pneumoniae] as the cause of diseases classified elsewhere; K56.7 Ileus, unspecified; R94.4 Abnormal results of kidney function studies